=== PATIENT | male | born 1975 | race African-American/Black ===

== ENCOUNTER 2018-05-29 23:01 | Emergency (ER) | payer OTHER ==
[~2018-05-29] VITALS: Ht 167.6 cm; Wt 104.3 kg
[2018-05-29 23:26] LABS: ABSOLUTE NEUTROPHILS 3.7 thou/uL (1.4-8.2); BASOPHILS 0.9 % (0.0-2.0); EOSINOPHILS 6.8 % (0.0-3.0); HEMATOCRIT 43.2 % (42.0-52.0); HEMOGLOBIN 14.3 gm/dL (14.0-18.0); LYMPHOCYTES 33.3 % (24.0-44.0); MCH 27.8 pg (26.0-34.0); MCHC 33.1 g/dL (28.0-37.0); MCV 83.8 fL (80.0-100.0); MONOCYTES 9.9 % (1.0-8.0); PLATELET COUNT 241 thou/uL (150-400); POLYS 49.1 % (36.0-66.0); RBC 5.16 mil/uL (4.50-6.00); RDW 13.1 % (10.5-14.5); WBC 7.5 thou/uL (4.0-11.0)
[2018-05-29] MEDS ORDERED: NOHOMEMEDICATIONS (23:29)
[2018-05-29 23:33] LABS: ANION GAP 6 mmol/L (7-16); BUN 10 mg/dL (7-18); CALCIUM 9.5 mg/dL (8.5-10.1); CHLORIDE 103 mmol/L (98-107); CO2 29 mmol/L (21-32); CREATININE 1.4 mg/dL (0.7-1.3); GLUCOSE 89 mg/dL (74-106); POTASSIUM 3.8 mmol/L (3.5-5.1); SODIUM 138 mmol/L (136-145)
[2018-05-29 23:42] LABS: ALBUMIN 4.3 g/dL (3.4-5.0); SGOT 25 U/L (15-37); SGPT 48 U/L (30-65); TOTAL BILIRUBIN 0.5 mg/dL (<0.1-1.0); TOTAL PROTEIN 7.8 g/dL (6.4-8.2); TROPONIN-I <0.06 ng/mL (<0.06)
[2018-05-30 00:16] VITALS: BP 129/80
--- NOTE | 2018-05-30 08:52 | EKG ---
[place] [address] [facility] [place] [address] ELECTROCARDIOGRAM REPORT Name: PETERSCHRADER Room #: MORENA Sanchez#: [id number] Admission: 05/29/18 Attend Phys: Discharge: 05/30/18 Date of : 79 Report #: [id number] THIS REPORT FOR: //name// [facility] ED Test Date: 2018-05-29 Test Time: 23:12:09 Pat Name: MACRINA GREEN Department: Room: Gender: Cosmetics Counter Manager: Kailee AVALOS : 1975 Requested By: Edis Jacobs Order Number: [id number] MD: Toño Sampson Measurements Intervals [place] Rate: 88 P: 45 DE: 150 QRS: -24 QRSD: 94 T: 10 QT: 353 QTc: 427 Interpretive Statements Sinus rhythm Borderline left axis deviation No previous ECG available for comparison Electronically Signed On 05-30-2018 8:52:05 AS400 PROGRAMMER ANALYST by Toño Sampson [email or web address] <ELECTRONICALLY SIGNED> By: Toño Sampson MD, [facility] 05/30/18 [id number] Toño Sampson MD, FACC /EPI
== END 2018-05-30 00:17 | disposition home or self-care (01) ==
LOC: ER 23:01
PROVIDERS: Emergency Medicine
DX: R07.9 Chest pain, unspecified (principal); Z91.030 Bee allergy status